=== PATIENT | male | born 1935 | race Caucasian/White ===

== ENCOUNTER 2017-06-11 19:49 | Inpatient (IN) | payer OTHER ==
[~2017-06-11] VITALS: Ht 160 cm; Wt 93.0 kg
--- NOTE | ~2017-06-11 | HC ---
[facility] [place] [address] [place] [address] CONSULTATION Name: AUTUMNMARTINEZRETA Christin Room #: 350-P [facility] IN M.R.#: [id number] Admission: 06/11/17 Attend Phys: Jd Alvarez MD Discharge: Date of : 34 Report #: [id number] THIS REPORT FOR: //name// CC: Jd Salinas PRIMARY CARE PHYSICIAN: Dr. Jd Alvarez REFERRAL PHYSICIAN: Dr. Humza Mac. REASON FOR REFERRAL: Hypoxia. HISTORY OF PRESENT ILLNESS: The patient is an 82-year-old white male, who presents to the Emergency Room with progressive dyspnea. Saturation performed by the EMS showed saturation of 60%. A pulmonary consultation was requested. The patient is known to this physician. He was seen in initial consultation in the office on 05/08/2017. He was found to be hypoxic with saturation on that day was 67% on room air. Chest x-ray shows extensive bilateral interstitial infiltrates with some areas of fibrosis. The patient also had lower extremity edema. However, the patient had refused further evaluation and treatment. Specifically, refused oxygen therapy. The patient states that he was living on borrowed time and is ready to go any time. Spirometry performed at Dr. Michelle's office in 12/2016 showed moderately reduced flows. The FEV1 measured 1.0 liter or 52% predicted. Otherwise, the patient is a fair historian. He does go tangential with other stories. He states he has been doing about the same until last evening. He thought that may be his last day. He called his son-in-law and told his son-in-law that he may be "going." Son-in-law called the EMS. Otherwise, denies any recent fever, night sweats or chills, chest pain, productive cough. He does note progressive lower extremity edema recently. His saturation at home was said to be around 60-70%. Again, the patient has refused oxygen therapy recently. PAST MEDICAL HISTORY: Notable for probable COPD, polycythemia. History of tobacco use, having stopped smoking in 2013. Hyperlipidemia, shingles in the past, severe pneumonia, respiratory failure in 2013, history of alcoholism, benign prostatic hypertrophy, hypertension, chronic kidney disease due to hypertension. PAST SURGICAL HISTORY: Includes testicular surgery. [facility] [address] [place] [address] CONSULTATION Name: RETA KEENAN Christin Room #: 350-P [facility] IN ..#: [id number] Admission: 06/11/17 Attend Phys: Jd Alvarez MD Discharge: Date of : 34 Report #: [id number] ALLERGIES: None noted. FAMILY HISTORY: Unremarkable. Both parents . SOCIAL HISTORY: He is , lives by himself. He has a daughter who lives in town. He had been regular visiting them on weekends until recently. He has smoked about 1-1/2 packs a day for 54 years, quit in 2013 and has a history of alcohol abuse, but has stopped drinking. HOME MEDICATIONS: List include Norvasc, Proscar, aspirin, Lasix, Prinivil, Pravachol, Flomax, vitamin D supplements, multivitamin supplements. REVIEW OF SYSTEMS: As mentioned above, otherwise 10-point system review negative. PHYSICAL EXAMINATION: GENERAL: He is awake, alert, appears moderately dyspneic. VITAL SIGNS: Temperature is 98.6 degrees Fahrenheit, pulse is 90, respiratory rate is 16, blood pressure 157/68 mmHg, saturation 95%. HEENT: Normocephalic, atraumatic. NECK: Supple, without any lymphadenopathy or thyromegaly. CHEST: Breath sounds are decreased bilaterally. Few scattered crackles in the bases. No wheezes. CARDIOVASCULAR: Normal S1, S2. There are no murmurs or gallop. There is no JVD, no carotid bruit. Pulses are 2+/4+ bilaterally. ABDOMEN: Soft, nontender, no organomegaly or masses felt. GENITOURINARY: Deferred. RECTAL: Deferred. EXTREMITIES: Notable for 2+ bilateral pretibial edema, no cyanosis or clubbing. NEUROLOGIC: No unilateral weakness noted. LABORATORY DATA: Chest x-ray shows questionable mild left lower lobe and some mild left lower lobe infiltrates, small right-sided pleural effusion. Electrolytes are normal except for creatinine of 1.2, BUN is 43, bicarbonate is 33. Arterial blood gas revealed pH of 7.27, pCO2 of 64, pO2 of 64 on 6 liters of O2. Hemoglobin is 18.1, hematocrit is 56. IMPRESSION: 1. Acute on chronic hypercapnic hypoxic respiratory failure in this 82-year-old white male due to underlying chronic obstructive pulmonary disease, right-sided heart failure, probable interstitial lung disease. Cannot rule out pneumonia based on chest x-ray findings. 2. Long history of tobacco use, probable chronic obstructive pulmonary disease, though recent spirometry did not show any evidence of airflow obstruction. 3. Chronic infiltrates since 2014 following pneumonia. Pulmonary fibrosis is suggested. [facility] [address] [place] [address] CONSULTATION Name: RETA KEENAN Room #: 350-P [facility] IN [facility]#: [id number] Admission: 06/11/17 Attend Phys: Jd Alvarez MD Discharge: Date of : 34 Report #: [id number] 4. Polycythemia, secondary to chronic hypoxia due to patient's refusal to wear oxygen. 5. Moderate obesity with a BMI around 37. 6. History of tobacco use, quit in 2013. 7. History of alcohol abuse. 8. Hypertension. 9. Chronic kidney disease, creatinine is 1.2 on this admission. His baseline creatinine appears to be around 1.2. 10. Lower extremity edema. Suspect right-sided heart failure due to cor pulmonale. 11. Questionable early dementia. Agree with plans for phlebotomy, gentle diuresis, corticosteroids, bronchodilators and broad spectrum antibiotics. The patient is now willing to wear oxygen. He should also have an overnight oximetry study in the near future once the patient stabilizes. In terms of disposition, I discussed with the patient's son along. He is in agreement at independent living by himself is no longer a good idea. They are looking into possible assisted living. DVT and GI prophylaxis recommended. Thank you for the consultation. <ELECTRONICALLY SIGNED> By: Alfredo Salinas MD 06/13/17 1636 [id number] Alfredo Salinas MD /nt
--- NOTE | ~2017-06-11 | H ---
[facility] [place] [address] HISTORY AND PHYSICAL Name: RETA RENDON Christin Room #: 350-P ADM IN M.R.#: [id number] Admission: 06/11/17 Attend Phys: Jd Alvarez MD Discharge: Date of : 34 Report #: [id number] THIS REPORT FOR: //name// CC: Jd Salinas MD DATE OF SERVICE: 06/11/2017 CHIEF COMPLAINT: Shortness of breath. HISTORY OF PRESENT ILLNESS: The patient is an 82-year-old white male who was brought to [facility] Emergency Room via [facility] with complaints of shortness of breath. Apparently, pulse oximetry readings at home were below 70% and the patient was feeling poorly. I spoke with him after he was admitted and asked if he could remember how long he had been feeling ill and he really could not answer that directly. He did frequently refer to his hospitalization with pneumonia in 2013. He states that he has not been taking Lasix as much as he should because it made him urinate more frequently than he desired to. He also was not compliant with supplemental oxygen, which has been ordered for him in the past. He last saw Dr. Alvarez approximately in January of the past year. PAST MEDICAL HISTORY: Significant for: 1. Severe COPD and secondary polycythemia (polycythemia rubra vera was previously ruled out, in 2013 according to hospitalization notes at that time). 2. Hypertension. 3. Benign prostate hypertrophy. 4. Remote history of alcoholism. 5. Ex-smoker. 6. Dementia per ER note. 7. Shingles at the time of pneumonia in 2014. 8. Hyperlipidemia. MEDICATIONS: His current medications include hydrocodone, pravastatin, furosemide, tamsulosin, amlodipine, bupropion and aspirin. ALLERGIES: He has no known drug allergies. SOCIAL HISTORY: He is retired and lives alone. He has at least 2 daughters. He has not smoked in at least 4 years and denies any other drug or alcohol abuse during that same period. REVIEW OF SYSTEMS: The patient reports that he normally is quite functional and still drives and maintains his own household. Oxygen has been ordered for him [facility] [address] [place] [address] HISTORY AND PHYSICAL Name: RETA RENDON Christin Room #: 350-P [facility]#: [id number] Admission: 06/11/17 Attend Phys: Jd Alvarez MD Discharge: Date of : 34 Report #: [id number] in the past and the patient was not sure if it was intended to be all the time every day or just as needed and used the apparent confusion to simply avoid using any supplemental oxygen, whatsoever. He does not have CPAP or BiPAP on his own either. His prop setter, whom he has not seen in quite some time, is Dr. Alfredo Salinas. Apparently, he saw him once, according to our conversation today. PHYSICAL EXAMINATION: VITAL SIGNS: In the Emergency Room, the patient had the following vital signs on arrival: His supplemental oxygen was at 4 liters per nasal cannula. His pulse was 104. His respirations were 30. His temperature was recorded at 35.9 degrees Celsius, blood pressure 156/76 and his pulse oximetry is at 74%. His weight is reported at 215 pounds from the Emergency Room. GENERAL: This is an obese, pot-bellied white male who at the time of my exam is already on BiPAP. HEENT: The extraocular muscles are intact. Oropharynx is slightly dry and pink. No lesions, no exudates. Sinuses nontender. Hearing grossly normal. NECK: Without adenopathy, thyromegaly, mass or significant bruit. LUNGS: Not wheezy, but significant for distant breath sounds. CARDIAC EXAMINATION: Distant, but regular with occasional extrasystole. ABDOMEN: Moderately distended, but nontender and does have active bowel sounds. EXTREMITIES: There is significant dry scaly skin below the knees on both sides, without any apparent infections. Peripheral edema of 3+/4 severity on both sides up to the middle of the calves. There is no Homans sign. Peripheral pulses are weak and palpable in all 4 distal extremities. There is some acral erythema noted. There is no cyanosis, but the patient is on BiPAP with an oxygen saturation concurrently measuring 92% to 95% during our interview. MENTAL STATUS: The patient is alert. He is oriented to place and time and person. I see no evidence of hallucinations or delusions and affect is appropriate. We did discuss at length the code status and the patient made it quite clear that he did not want to be resuscitated in the event of cardiac and/or pulmonary arrest. His daughter, Shayy, was with him and she concurred with understanding his wishes and agreeing to be supportive of his wishes. LABORATORY DATA: Labs from the Emergency Room showed a very significant elevation of hemoglobin at 18.5 with a hematocrit greater than 57%. The rest of the CBC was benign. The chemistry showed sodium of 143, potassium 5.0 with some slight hemolysis. The chloride was 105. The CO2 was 33. The BUN was 43 and creatinine 1.2. The anion gap was low at 5. The estimated GFR was 58. Glucose 119 nonfasting and calcium of 8.9. NT-proBNP was 614, which per his age is not exceptionally abnormal. His arterial blood gas on 6 liters per nasal cannula revealed a pH of 7.276, a pCO2 of 64 mmHg and the pO2 of 64.7 mmHg. The lactate was 1.47 and right at the upper limits of normal and that was done prior to him starting on the BiPAP. EKG was done in the Emergency Room. This showed no change from 02/2013, sinus rhythm with rate of 96 beats per minute and a [facility] [address] [place] [address] HISTORY AND PHYSICAL Name: RETA RENDON Room #: 350-P [facility] IN [facility]#: [id number] Admission: 06/11/17 Attend Phys: Jd Alvarez MD Discharge: Date of : 34 Report #: [id number] rightward axis deviation and low voltage. Blood cultures and sputum cultures were obtained in the Emergency Room. Chest x-ray showed the following impression: "Cardiomegaly with vascular congestion, mild interstitial infiltrate and more focal basilar infiltrates with small effusions. This may represent edema. Pneumonia or aspiration is not excluded". ASSESSMENT AND PLAN: 1. Boaju-fo-xyqhkwu respiratory failure - the patient has a particularly complex presentation. Clearly, he has some COPD exacerbation and may have pneumonia with or without congestive heart failure. Further complicating matters, he likely has a component of sludging of his red blood cells with a hematocrit greater than 55%. I believe that the best therapeutic option in the next 48 hours will be to pursue phlebotomy and thus improve his perfusion and circulation while reducing his cardiac work and improving his cardiac output. This should not adversely affect his oxygenating capabilities. It is reassuring that his NT-proBNP is no more elevated and as such, I will start him on intravenous sodium bicarbonate drip tonight to try and improve his acidosis status and his hemoglobin, hematocrit and sludging. Prior to initiating phlebotomy, I would like to discuss that with Dr. Salinas, his pulmonary lactation consultant. 2. Hypertension. We will monitor and treat accordingly. 3. Intertrigo, groin - we will start him on an antifungal cream. 4. History of benign prostate hypertrophy. Continue current medication. 5. History of hyperlipidemia. We will continue current medication. 6. Suspected intravascular volume depletion, see above discussion. SUMMARY: In the presence of his daughter, Shayy Rendon, I also discussed hospice with this patient. He is very interested in that option, if we feel that aggressive intervention in his respiratory failure is unlikely to be productive. I did explain to him that as of this time, he is not safe to drive and should plan on not driving anymore unless cleared to do so after discharge from the hospital by his primary care physician, Dr. Alvarez. I also explained to the patient that hospice could be done at home, but would require more assistance than merely meeting his hospice needs. I feel it is very likely that the patient will not be able to care for himself given the severity of his pulmonary condition. We will treat aggressively with nebulizer treatments, steroids and antibiotics for now. I have entered a Do Not Resuscitate order in the medical record and let the patient know that his wishes would be honored. <ELECTRONICALLY SIGNED> By: Humza Mac MD 06/12/17 1134 [id number] 0130 Humza Mac MD /nt
--- NOTE | ~2017-06-11 | 2DMMODE ---
[facility] [place] [address] 2 D/M-MODE ECHOCARDIOGRAM Name: RETA KEENAN Room #: 350-P [facility] IN ..#: [id number] Admission: 06/11/17 Attend Phys: Jd Alvarez, Discharge: Date of : 34 Date of Service: 06/12/17 1456 Report #: [id number] THIS REPORT FOR: //name// APPROVED REPORT Study performed: 06/12/2017 12:49:25 EXAM: Comprehensive 2D, Doppler, and color-flow Echocardiogram Patient Location: Bedside Room #: 350 Status: routine BSA: 1.98 HR: 96 bpm BP: 148/70 mmHg Other Information Study Quality: Technically Limited Indications Congestive Heart Failure COPD Dyspnea Hypertension/HDD 2D Dimensions IVC: 29.00 mm Aortic Valve AoV Peak Lucio.: 1.88 m/s AO Peak Gr.: 14.52 mmHg LVOT Max P.12 mmHg LVOT Max V: 1.51 m/s Mitral Valve E/A Ratio: 0.8 MV Decel. Time: 313.12 ms MV E Max Lucio.: 1.27 m/s MV A Lucio.: 1.61 m/s MV PHT: 90.80 ms IVRT: 133.79 ms Pulmonary Valve PV Peak Lucio.: 1.03 m/s PV Peak Gr.: 4.20 mmHg Tricuspid Valve TR Peak Lucio.: 4.25 m/s [facility] [address] [place] [address] 2 D/M-MODE ECHOCARDIOGRAM Name: RETA KEENAN Room #: 350-P ADM IN .R.#: [id number] Admission: 06/11/17 Attend Phys: Jd Alvarez, Discharge: Date of : 34 Date of Service: 06/12/17 1456 Report #: [id number] Peak Gr.: 72.31 mmHg PA Pressure: 82.00 mmHg Left Ventricle The left ventricle is normal size. There is normal left ventricular wall thickness. Left ventricular systolic function is hyperdynamic. LVEF is65% This study is not technically sufficient to allow evaluation of the LV diastolic function. Right Ventricle Right ventricle is dilated. Right ventricle is mildly hypokinetic. Atria Left atrium is dilated. Right atrium is dilated. Aortic Valve Aortic valve is not well visualized. No aortic regurgitation is present. There is no aortic valvular stenosis. Mitral Valve The mitral valve is normal in structure. Trace mitral regurgitation. No evidence of mitral valve stenosis. Tricuspid Valve The tricuspid valve is normal in structure. There is mild to moderate tricuspid regurgitation. Estimated PAP 82 mmHg. There is severe pulmonary hypertension. Pulmonic Valve The pulmonary valve is normal in structure. There is no pulmonic valvular regurgitation. Great Vessels The aortic root is normal in size. IVC is dilated and collapses <50% with inspiration. Pericardium There is no pericardial effusion. <Conclusion> The left ventricle is normal size. LVEF is65% This study is not technically sufficient to allow evaluation of the LV diastolic function. Right ventricle is dilated. [facility] [address] [address] 2 D/M-MODE ECHOCARDIOGRAM Name: AUTUMNMARTINEZRETA Christin Room #: 350-P [facility] IN [facility]#: [id number] Admission: 06/11/17 Attend Phys: Jd Alvarez, Discharge: Date of : 34 Date of Service: 06/12/17 1456 Report #: [id number] Right ventricle is mildly hypokinetic. Left atrium is dilated. Right atrium is dilated. There is no aortic valvular stenosis. Trace mitral regurgitation. There is mild to moderate tricuspid regurgitation. Estimated PAP 82 mmHg. There is severe pulmonary hypertension. The aortic root is normal in size. IVC is dilated and collapses <50% with inspiration. There is no pericardial effusion. <ELECTRONICALLY SIGNED> By: Rober Dorantes MD, FACC 06/12/17 1456 145 [id number] Rober Dorantes MD, FACC /INF
--- NOTE | ~2017-06-11 | EKG ---
[place] [address] [facility] [place] [address] ELECTROCARDIOGRAM REPORT Name: RETA KEENAN Room #: 350-P ADM IN M.R.#: [id number] Admission: 06/11/17 Attend Phys: Jd Alvarez MD Discharge: Date of : 34 Report #: [id number] THIS REPORT FOR: //name// [facility] ED Test Date: 2017-06-11 Test Time: 19:57:56 Pat Name: RETA KEENAN Department: Room: 350 Gender: M Rn Operating Room: LASHELL : 1935 Requested By: Kathie Mooney Order Number: [id number] MD: Jewel Cadena Measurements Intervals [place] Rate: 96 P: 76 PA: 167 QRS: 99 QRSD: 87 T: 24 QT: 351 QTc: 444 Interpretive Statements Sinus rhythm Probable left atrial enlargement Right axis deviation Poor R wave progression Compared to ECG 03/15/2013 15:23:57 No significant changes Electronically Signed On 06-12-2017 8:45:03 CDT by Jewel Cadena [email or web address] <ELECTRONICALLY SIGNED> By: Jewel Cadena MD, [facility] 06/12/17 0845 56 56 Jewel Cadena MD, [facility] /EPI
[2017-06-11 19:49] VITALS: BP 156/76
[~2017-06-11 19:49] MED LIST: ACETAMINOPHEN325 M1 PO; AMLODIPINE BESY10 MG PO; AMOX TR-K CLV1 EAC4 PO; DUONEB 2.5-0.5 M3 ML INH; ENOXAPARIN40 MG/0.1 SUBQ; FINASTERIDE5 MG PO; FLOMAX0.4 MG PO; HYDROCODONE-AP1 EAC6 PO; K-DUR 20 MEQ T20 MEQ PO; LASIX 40 MG TAB40 M1 PO; LISINOPRIL40 MG PO; NORVASC5 MG PO; PAXIL10 MG PO; PRAVASTATIN SOD40 MG PO; PREDNISONE 5 MG5 M1; PROTONIX40 M2 PO; SEROQUEL 50 MG50 M1 PO; TAMSULOSIN HCL0.4 M1 PO; TEARS PURE DROP15 ML; TOPROL XL100 MG PO; UNKNOWN HTN MED; WELLBUTRIN 100100 MG PO; ZYPREXA2.5 MG PO
[2017-06-11] MEDS ORDERED: ASPIRIN325 PO (19:59)
[2017-06-11] MEDS ORDERED: [UNRECOGNIZED DRUG - REMARK] (19:59)
[2017-06-11 20:08] LABS: WBC 6.1 thou/uL (4.0-11.0)
[2017-06-11 20:10] LABS: HEMATOCRIT 57.7 % (42.0-52.0); HEMOGLOBIN 18.5 gm/dL (14.0-18.0); MCH 30.2 pg (26.0-34.0); MCHC 32.1 g/dL (28.0-37.0); RBC 6.13 mil/uL (4.50-6.00); RDW 16.8 % (10.5-14.5)
[2017-06-11 20:17] LABS: CALCIUM 8.9 mg/dL (8.5-10.1); CREATININE 1.2 mg/dL (0.7-1.3)
[2017-06-11 20:22] LABS: BE(vivo) -0.1 mmol/L (-2 to +3); HCO3 29.1 mmol/L (22.0-26.0); PO2 64.7 mmHg (80.0-100.0); sO2 89.4 % (92.0-98.0)
[2017-06-11 20:23] LABS: pH 7.276 (7.360-7.450)
[2017-06-11 20:38] LABS: ABSOLUTE NEUTROPHILS 4.7 thou/uL (1.4-8.2); ATYPICAL LYMPHS 1 %
[2017-06-11 20:39] LABS: ANISOCYTOSIS 1+; POLYCHROMASIA 1+
[2017-06-11 20:40] LABS: PLATELET COUNT 157 thou/uL (150-400)
[2017-06-11 21:06] VITALS: BP 149/63
[2017-06-11 21:30] VITALS: BP 157/82
[2017-06-11] MEDS ORDERED: VITAMINC500 PO (21:53)
[2017-06-11] MEDS ORDERED: MULTIVITAMINS1 EAC7 PO (21:54)
[2017-06-12 00:45] VITALS: BP 153/76
[2017-06-12 03:15] VITALS: BP 147/70
[2017-06-12 05:19] LABS: HEMATOCRIT 56.5 % (42.0-52.0); HEMOGLOBIN 18.1 gm/dL (14.0-18.0)
[2017-06-12 05:44] LABS: CALCIUM 8.6 mg/dL (8.5-10.1); CREATININE 1.2 mg/dL (0.7-1.3); MAGNESIUM 2.3 mg/dL (1.8-2.4)
[2017-06-12 08:01] VITALS: BP 157/68
[2017-06-12 12:16] VITALS: BP 148/70
[2017-06-12] MEDS ORDERED: LASIX 40 MG TAB40 M2 PO (14:45)
[2017-06-12] MEDS ORDERED: LISINOPRIL5 MG PO (14:47)
[2017-06-12 17:13] VITALS: BP 130/52
[2017-06-12 19:10] VITALS: BP 133/74
[2017-06-13 04:30] VITALS: BP 149/81
[2017-06-13 06:15] LABS: HEMATOCRIT 53.4 % (42.0-52.0); HEMOGLOBIN 16.9 gm/dL (14.0-18.0); MCH 29.9 pg (26.0-34.0); MCHC 31.6 g/dL (28.0-37.0); MCV 94.5 fL (80.0-100.0); RBC 5.65 mil/uL (4.50-6.00); RDW 16.9 % (10.5-14.5)
[2017-06-13 06:26] LABS: CALCIUM 8.5 mg/dL (8.5-10.1); CREATININE 1.1 mg/dL (0.7-1.3); POTASSIUM 5.1 mmol/L (3.5-5.1)
[2017-06-13 07:22] LABS: BE(vivo) 3.7 mmol/L (-2 to +3); HCO3 34.5 mmol/L (22.0-26.0); PO2 163.4 mmHg (80.0-100.0); sO2 98.8 % (92.0-98.0)
[2017-06-13 07:23] LABS: pH 7.258 (7.360-7.450)
[2017-06-13 07:47] VITALS: BP 113/14
[2017-06-13 12:23] VITALS: BP 189/80
[2017-06-13 16:00] VITALS: BP 112/47
[2017-06-13 19:45] VITALS: BP 144/64
[2017-06-14 03:45] VITALS: BP 149/60
[2017-06-14 06:14] LABS: BE(vivo) 7.7 mmol/L (-2 to +3); HCO3 36.5 mmol/L (22.0-26.0); PCO2 66.5 mmHg (35.0-45.0); PO2 90.3 mmHg (80.0-100.0); pH 7.357 (7.360-7.450); sO2 96.3 % (92.0-98.0)
[2017-06-14 08:03] VITALS: BP 152/68
[2017-06-14 11:00] VITALS: BP 139/61
[2017-06-14 14:51] VITALS: BP 131/61
[2017-06-14 19:40] VITALS: BP 133/69
[2017-06-15 03:55] VITALS: BP 126/61
[2017-06-15 05:19] LABS: HEMATOCRIT 56.5 % (42.0-52.0); HEMOGLOBIN 17.9 gm/dL (14.0-18.0); MCH 29.6 pg (26.0-34.0); MCHC 31.7 g/dL (28.0-37.0); MCV 93.3 fL (80.0-100.0); RBC 6.06 mil/uL (4.50-6.00); RDW 16.8 % (10.5-14.5); WBC 8.4 thou/uL (4.0-11.0)
[2017-06-15 05:27] LABS: CALCIUM 8.9 mg/dL (8.5-10.1); CREATININE 1.3 mg/dL (0.7-1.3); POTASSIUM 4.6 mmol/L (3.5-5.1)
[2017-06-15 07:42] VITALS: BP 132/73
[2017-06-15] MEDS ORDERED: TERBINAFINE HCL30 GM TOP (08:49)
[2017-06-15] MEDS ORDERED: FUROSEMIDE20 MG/2 ML IV PUSH (08:49)
[2017-06-15] MEDS ORDERED: NOVOLOG100 UNIT/1 SUBQ (08:49)
[2017-06-15] MEDS ORDERED: Hydrocerin Cream 4 O TOP (08:49)
[2017-06-15] MEDS ORDERED: MORPHINE 44 MG/1 ML IV PUSH (08:49)
[2017-06-15] MEDS ORDERED: ALBUTEROL2.5 MG/0.1 INH ×2 (08:49)
[2017-06-15] MEDS ORDERED: ENOXAPARIN40 MG/0.1 SUBQ (08:49)
[2017-06-15] MEDS ORDERED: LORAZEPAM 22 MG/1 ML IV PUSH (08:49)
[2017-06-15 12:10] VITALS: BP 143/73
== END 2017-06-15 17:22 | disposition hospice, home (50) | DRG 193 ==
LOC: ER 19:49 → 3W 20:37 → EROBS 20:37 → 3W 21:11
PROVIDERS: Emergency Medicine; Internal Medicine; Internal Medicine Pulmonary Disease
DX: J18.9 Pneumonia, unspecified organism (principal); J96.21 Acute and chronic respiratory failure with hypoxia; J96.22 Acute and chronic respiratory failure with hypercapnia; J44.1 Chronic obstructive pulmonary disease with (acute) exacerbation; J44.0 Chronic obstructive pulmonary disease with (acute) lower respiratory infection; I13.0 Hypertensive heart and chronic kidney disease with heart failure and stage 1 through stage 4 chronic kidney disease, or unspecified chronic kidney disease; F03.90 Unspecified dementia, unspecified severity, without behavioral disturbance, psychotic disturbance, mood disturbance, and anxiety; E78.00 Pure hypercholesterolemia, unspecified; I50.9 Heart failure, unspecified; E78.5 Hyperlipidemia, unspecified; N18.3 Chronic kidney disease, stage 3 (moderate); D75.1 Secondary polycythemia; N40.0 Benign prostatic hyperplasia without lower urinary tract symptoms; R25.1 Tremor, unspecified; E66.8 Other obesity; Z60.2 Problems related to living alone; I27.81 Cor pulmonale (chronic); Z66 Do not resuscitate; Z91.14 Patient's other noncompliance with medication regimen; Z68.37 Body mass index [BMI] 37.0-37.9, adult
CPT/HCPCS: 10779